=== PATIENT | female | born 1930 | race Caucasian/White ===

== ENCOUNTER 2016-10-29 23:50 | Inpatient (IN) | payer MEDICARE ==
--- NOTE | ~2016-10-29 | HP ---
History And Physical [address] [address] NAME: JANNY BARFIELD : 30 STATUS : ADM [facility]#: [id number] AGE: 86 ADM/REG DATE : 10/29/16 MR#: [id number] REPORT SERV DATE: 10/30/16 DICTATED BY: MELISSA LOJA DATE: 10/30/16 REPORT STATUS : Draft TRANSCRIBED BY: MODColette DATE: 10/30/16 DATE OF ADMISSION: 10/29/2016 CHIEF COMPLAINT: An 86-year-old female presenting with abdominal pain and evidence of urinary tract infection. HISTORY OF PRESENT ILLNESS: The patient's history was obtained through careful interview with the patient and daughter coupled with review of [facility] and [facility] medical records. The patient states that just on the day prior to the one leading up to admission she began to develop increasing abdominal pain, nausea, vomiting, and decreased appetite. There is no diarrhea at all. She describes abdominal cramping pain as suprapubic, in the mid abdomen, that radiates to the flanks, 10/10 in severity. She has not noticed any urinary symptoms. No dysuria. No urinary frequency, although today she finally noticed an odd color, but no odor to her urine. She has felt lightheaded and dizzy exacerbated by vomiting at times. She has had chills and describes "freezing," but no fevers. No confusion. No shortness of breath. No chest pain. No cough. She claims her diabetes is under good control. REVIEW OF SYSTEMS: Otherwise, a 14-point review of systems was obtained and was negative. PAST MEDICAL HISTORY: 1. Diabetes. 2. Transient ischemic attack in 2009. 3. Hypothyroidism. 4. Hypertension. 5. Urinary tract infection. 6. No cardiac disease. No lung disease. PAST SURGICAL HISTORY: 1. Oophorectomy for ruptured ovarian cyst. 2. Adhesiolysis. ALLERGIES: PENICILLIN. SOCIAL HISTORY: No tobacco abuse. No alcohol abuse. She has been a since 2008. She lives alone in [place], [place], but daughter lives less than a mile away. FAMILY HISTORY: Diabetes and heart disease. History And Physical [address] [address] NAME: JANNY BARFIELD : 30 STATUS : ADM [facility] PAT#: [id number] AGE: 86 ADM/REG DATE : 10/29/16 MR#: [id number] REPORT SERV DATE: 10/30/16 DICTATED BY: MELISSA LOJA DATE: 10/30/16 REPORT STATUS : Draft TRANSCRIBED BY: PARKER DATE: 10/30/16 CURRENT MEDICATIONS: Include Norvasc 2.5 mg p.o. daily, aspirin 81 mg p.o. daily, vitamin D, vitamin B12, Synthroid 50 mcg p.o. daily, Cozaar 100 mg p.o. daily, and metformin 850 mg p.o. b.i.d. PHYSICAL EXAMINATION: VITAL SIGNS: Temperature 97.8, pulse 75, blood pressure 180/79, respiratory rate 16, and O2 saturation 96% on room air. GENERAL: A pleasant, cooperative female, in no evidence of acute distress. HEENT: Pupils are equal, round, and reactive to light. No conjunctival pallor. No scleral icterus. Nares are patent. Oropharynx is clear of obstruction. Dry mucous membranes. NECK: Trachea midline. No thyromegaly. LYMPH: No cervical lymphadenopathy. No supraclavicular lymphadenopathy. No inguinal lymphadenopathy. RESPIRATORY: Clear to auscultation at bases. No wheezes, rales, or rhonchi. Normal respiratory effort. CARDIOVASCULAR: Regular rate and rhythm. No murmurs, rubs, or gallops. No extremity edema is appreciated. ABDOMEN: Minimal suprapubic abdominal pain and mid abdominal pain. No flank tenderness. No guarding or rebound. Nondistended. No hepatosplenomegaly. DERMATOLOGICAL: Warm and dry extremities. No pallor. No cyanosis. PSYCHIATRIC: Normal affect. Good mood. Alert and oriented x3. LABORATORY DATA: Urinalysis shows large leukocyte esterase, greater than 182 white blood cells, and 6 hyaline casts. White blood cell count 9.4, hemoglobin 14, hematocrit 40, and platelets 245. Sodium 131, potassium 4.4, chloride 94, bicarb 25, BUN 17, creatinine 0.87, and glucose 187. Lipase 131. Liver enzymes within normal limits. STUDIES: 1. Chest x-ray by my own evaluation shows no acute cardiopulmonary process. 2. CT scan of the abdomen shows enteritis changes. ASSESSMENT AND PLAN: 1. Urinary tract infection. Check urine culture. Place on IV antibiotics. 2. Enteritis. Provide supportive care. 3. Dehydration. Place on IV fluids. 4. Diabetes. Check hemoglobin A1c. Place on sliding scale insulin. BHARTI/PARKER Melissa Loja M.D. / [id number] CC: History And Physical [address] [address] NAME: JANNY BARFIELD : 30 STATUS : ADM [facility] PAT#: [id number] AGE: 86 ADM/REG DATE : 10/29/16 MR#: [id number] REPORT SERV DATE: 10/30/16 DICTATED BY: MELISSA LOJA DATE: 10/30/16 REPORT STATUS : Draft TRANSCRIBED BY: PARKRE DATE: 10/30/16 MD Elijah Fan M.D.
--- NOTE | ~2016-10-29 | DS ---
Discharge Summary [facility] [address] [place]. [address] NAME: JANNY BARFIELD : 30 STATUS : DIS IN PAT#: [id number] AGE: 86 ADM/REG DATE : 10/29/16 MR#: [id number] REPORT SERV DATE: 11/01/16 DICTATED BY: MARK WOODALL DATE: 10/31/16 REPORT STATUS : Draft TRANSCRIBED BY: MODL DATE: 10/31/16 ADMISSION DATE: 10/29/2016 DISCHARGE DATE: 10/31/2016 DISCHARGE DIAGNOSES: 1. Enteritis. 2. Urinary tract infection, present on admission, ruled out. 3. Dehydration. 4. Diabetes. CONSULTS: None. PROCEDURES: None. HOSPITAL COURSE: This is an 86-year-old lady who was admitted to the hospital with urinary tract infection as well as enteritis. For details please refer to excellent H and P dictated by Dr. Dumont. In summary, the patient was admitted and was started on IV Levaquin for potential urinary tract infection. The patient was also given bowel rest with clear liquid diet as well as IV fluid hydration. The patient actually improved significantly with supportive care alone and the patient began to have appetite back. The patient was able to tolerate p.o. intake and was able to keep a full liquid diet with some snacks down. By the second day of the hospital stay, it was felt that the patient really did not have a true urinary tract infection as the patient really did not have any urinary symptoms and thus, the IV Levaquin was discontinued. The patient continued to do well and patient's urine culture eventually only grew diphtheroid-like organisms. After much improvement in clinical symptoms, it was felt that the patient was stable for discharge home to be followed as an outpatient closely. During the entire hospital stay, patient remained afebrile and hemodynamically stable. The patient never had a leukocytosis or any other signs and symptoms to suggest sepsis. DISCHARGE MEDICATIONS: No changes. DISPOSITION: Home. FOLLOWUP: Please follow up with PCP in the next one to two weeks. A total of 25 minutes spent in coordinating this patient's discharge today. MISHEL/PARKER Mark Woodall MD / [id number] Discharge Summary [place] [address] [address] NAME: JANNY BARFIELD : 30 STATUS : DIS IN PAT#: [id number] AGE: 86 ADM/REG DATE : 10/29/16 MR#: [id number] REPORT SERV DATE: 11/01/16 DICTATED BY: MARK WOODALL DATE: 10/31/16 REPORT STATUS : Draft TRANSCRIBED BY: PARKER DATE: 10/31/16 CC: MD Elijah Fan M.D.
[~2016-10-29 23:50] MED LIST: ASAB PO; BENICAR20 PO; COZAAR100 MG PO; GLUCOTROL5 PO; GLUCPH PO; GLUCPH8 PO; L20 PO; MAGOX4 PO; METHOC500B PO; SYN.05 PO; VITAMIN B-121000 MC1 PO; VITAMIN D1000 UNI1 PO; ZOCOR20 PO
[2016-10-29 23:55] LABS: BASOPHILS 0.1 %; BASOPHILS ABSOLUTE 0.01 10/3/uL (0.0-0.16); EOSINOPHILS 0.2 %; EOSINOPHILS ABSOLUTE 0.02 10/3/uL (0.0-0.53); ER CBC TAT 0 Hrs 10 Mins; HEMOGLOBIN 14.4 g/dL (12.0-16.0); IMMATURE GRANULOCYTES 0.1 %; IMMATURE GRANULOCYTES ABSOLUTE 0.01 10/3/uL (0.0-0.11); LYMPHOCYTES 14.5 %; LYMPHOCYTES ABSOLUTE 1.36 10/3/uL (0.67-4.30); MEAN CORPUS HGB CONC 35.9 g/dL (32.0-36.0); MEAN CORPUSCULAR HEMOGLOB 31.2 pg (26.0-34.0); MEAN PLATELET VOLUME 10.7 fL (9.2-13.0); MONOCYTES 6.4 %; NEUTROPHILS 78.7 %; PLATELET COUNT 245 10/3/uL (150-400); RBC DISTRIBUTION WIDTH 13.1 % (12.0-16.0); RED CELL COUNT 4.61 10/6/uL (4.0-5.6); WHITE BLOOD CELLS 9.4 10/3/uL (4.5-10.5)
[2016-10-29 23:56] LABS: HEMATOCRIT 40.1 % (36.0-48.0); MANUAL DIFF NO %
[2016-10-30 00:09] LABS: ASCORBIC ACID (UR NOT ORDER) NEG (NEG); BILIRUBIN, URINE NEGATIVE (NEG); ER URINALYSIS TAT 0 Hrs 00 Mins; KETONE, URINE 80 MG/DL (NEG); LEUKOCYTE ESTERASE(NOT OR LARGE (NEG); NITRITE (URINE) NEG (NEG); WBC (NOT ORDERED) (RFLEX) > 182 (0-5)
[2016-10-30 00:11] LABS: A/G RATIO 1.3 (0.7-1.9); ALBUMIN 4.5 G/DL (3.5-5.0); ALKALINE PHOSPHATASE 58 U/L (45-117); BUN (BLOOD UREA NITROGEN) 17 MG/DL (6-23); CHLORIDE, SERUM 94 MMOL/L (96-112); CO2 (CARBON DIOXIDE) 25 MMOL/L (24-34); CREATININE 0.87 MG/DL (0.55-1.02); GFR AFRICAN AMERICAN 70 ML/MIN (>=60); GFR NON AFRICAN AMERICAN 60 ML/MIN (>=60); GLOBULIN 3.5 G/DL (2.5-4.1); POTASSIUM, SERUM 4.4 MMOL/L (3.5-5.3); SGOT(AST) 11 U/L (5-40); SGPT(ALT) 22 U/L (5-65); SODIUM, SERUM 131 MMOL/L (135-148); TOTAL BILIRUBIN 0.7 MG/DL (0-1.2)
[2016-10-30 00:12] LABS: DIRECT BILIRUBIN 0.2 MG/DL (0.0-0.4); INDIRECT BILIRUBIN(NOT ORDER) 0.9 MG/DL (0.1-0.9); TOTAL PROTEIN 8.1 G/DL (6.0-8.5)
[2016-10-30 00:13] LABS: ALBUMIN 4.7 G/DL (3.5-5.0); GLUCOSE, SERUM 187 MG/DL (60-99); TOTAL BILIRUBIN 1.1 MG/DL (0-1.2)
[2016-10-30] MEDS ORDERED: COZAAR100 MG PO (00:57)
[2016-10-30] MEDS ORDERED: SYN.05 PO (00:57)
[2016-10-30] MEDS ORDERED: NORV25 PO (00:57)
[2016-10-30] MEDS ORDERED: CYANO1000T PO (00:58)
[2016-10-30] MEDS ORDERED: GLUCPH8 PO (00:58)
[2016-10-30] MEDS ORDERED: ASAB PO (00:58)
[2016-10-30] MEDS ORDERED: VITAMIN D31000 UNIT PO (00:59)
[2016-10-30 09:23] LABS: BASOPHILS 0.1 %; BASOPHILS ABSOLUTE 0.01 10/3/uL (0.0-0.16); EOSINOPHILS 0.4 %; EOSINOPHILS ABSOLUTE 0.03 10/3/uL (0.0-0.53); HEMATOCRIT 36.3 % (36.0-48.0); HEMOGLOBIN 12.8 g/dL (12.0-16.0); IMMATURE GRANULOCYTES 0.3 %; IMMATURE GRANULOCYTES ABSOLUTE 0.02 10/3/uL (0.0-0.11); LYMPHOCYTES 18.6 %; LYMPHOCYTES ABSOLUTE 1.42 10/3/uL (0.67-4.30); MEAN CORPUS HGB CONC 35.3 g/dL (32.0-36.0); MEAN CORPUSCULAR HEMOGLOB 30.5 pg (26.0-34.0); MEAN CORPUSCULAR VOLUME 86.6 fL (80-100); MEAN PLATELET VOLUME 10.7 fL (9.2-13.0); MONOCYTES 11.1 %; MONOCYTES ABSOLUTE 0.85 10/3/uL (0.21-1.20); NEUTROPHILS 69.5 %; NEUTROPHILS ABSOLUTE 5.32 10/3/uL (2.02-8.40); PLATELET COUNT 216 10/3/uL (150-400); RBC DISTRIBUTION WIDTH 13.3 % (12.0-16.0); RED CELL COUNT 4.19 10/6/uL (4.0-5.6); WHITE BLOOD CELLS 7.7 10/3/uL (4.5-10.5)
[2016-10-30 09:26] LABS: MANUAL DIFF NO %
[2016-10-30 09:31] LABS: INTERNATIONAL NORMAL RATI 1.2 UNITS (-); PARTIAL THROMBO TIME 26.2 SEC (22.5-37.2); PROTIME (NOT ORD) 14.7 SEC (12.0-14.5)
[2016-10-30 09:49] LABS: A/G RATIO 1.3 (0.7-1.9); ALBUMIN 3.9 G/DL (3.5-5.0); ALKALINE PHOSPHATASE 51 U/L (45-117); CALCIUM, SERUM 8.8 MG/DL (8.5-10.4); CHLORIDE, SERUM 100 MMOL/L (96-112); CO2 (CARBON DIOXIDE) 25 MMOL/L (24-34); CREATININE 0.68 MG/DL (0.55-1.02); GFR AFRICAN AMERICAN 92 ML/MIN (>=60); GFR NON AFRICAN AMERICAN 79 ML/MIN (>=60); SGOT(AST) 9 U/L (5-40); SGPT(ALT) 17 U/L (5-65); SODIUM, SERUM 134 MMOL/L (135-148); TOTAL BILIRUBIN 0.8 MG/DL (0-1.2); TOTAL PROTEIN 6.9 G/DL (6.0-8.5); TROPONIN I <0.02 NG/ML (<0.05)
[2016-10-30 09:50] LABS: BUN (BLOOD UREA NITROGEN) 12 MG/DL (6-23); GLUCOSE, SERUM 146 MG/DL (60-99)
[2016-10-31] MEDS ORDERED: ZOFRAN ODT4 MG PO (15:20)
== END 2016-10-31 16:40 | disposition home or self-care (01) | DRG 641 ==
LOC: ER 23:50 → 6NO 23:59
PROVIDERS: Emergency Medicine; Hospitalist
DX: E86.0 Dehydration (principal); K52.9 Noninfective gastroenteritis and colitis, unspecified; E11.9 Type 2 diabetes mellitus without complications; E03.9 Hypothyroidism, unspecified; I10 Essential (primary) hypertension; Z86.73 Personal history of transient ischemic attack (TIA), and cerebral infarction without residual deficits; Z22.9 Carrier of infectious disease, unspecified
CPT/HCPCS: 71010; 74176; 80053; 80076; 81001; 82962; 83036; 83690; 83735; 84443; 84484; 85025; 85610; 85730; 87086; 96374; 99285; A9270-GY; C9113; J1956; J1980; J2405